=== PATIENT | female | born 1975 | race African-American/Black ===

== ENCOUNTER 2020-05-11 12:56 | Outpatient (REF) | payer OTHER, SELFPAY | END 2020-05-11 12:57 | disposition home or self-care (01) | LOC: HO.LAB 12:56 | PROVIDERS: Visit Provider Internal Medicine | DX: Z20.828 Contact with and (suspected) exposure to other viral communicable diseases (principal) | CPT/HCPCS: C9803; U0003 ==

== ENCOUNTER 2020-05-31 14:24 | Outpatient (REF) | payer OTHER, SELFPAY | END 2020-05-31 14:25 | disposition home or self-care (01) | LOC: HO.LAB 14:24 | PROVIDERS: Visit Provider Internal Medicine | DX: Z20.828 Contact with and (suspected) exposure to other viral communicable diseases (principal) | CPT/HCPCS: C9803; U0003 ==